=== PATIENT | female | born 1985 ===

== ENCOUNTER 2023-07-27 19:02 | Emergency (ER) | payer OTHER, MEDICAID, SELFPAY ==
[2023-07-27 19:22] VITALS: BP 115/62; PULSE 78; RESP 16; TEMP 36.2; O2SAT 100; BMI 21.9
--- NOTE | 2023-07-27 22:17 | ED.DENTAL ---
HPI - Dental/Oral General Chief complaint: General Medical Stated complaint: dry socket? Time Seen by Provider: 07/27/23 21:28 Source: patient Mode of arrival: ambulatory Limitations: no limitations History of Present Illness HPI Narrative: Patient is status post lower premolar tooth number 21 extraction 3 days ago noticed pain for last 2 days which is sharp unable to eat anything no fever no chills Related Data Home Medications Medication Instructions Recorded Confirmed metformin 500 mg tablet 500 mg PO BID 01/11/23 Previous Rx's Medication Instructions Recorded meloxicam 15 mg tablet 15 mg PO DAILY #14 tabs 01/11/23 Allergies Allergy/AdvReac Type Severity Reaction Status Date / Time No Known Allergies Allergy Unverified 01/11/23 13:08 [No Known Allergies*] Review of Systems Review of Systems: Yes all other systems are reviewed and are negative PMFSH Social History Social History Smoked in Last 30 Days: No Use of substances other than those prescribed or required for medical reasons: No Advance Directives: No Advance Directives Information Provided: No Patient : No Physical Exam Vital Signs: Vital Signs: Last Vital Signs Temp 97.1 F 07/27/23 19:22 Pulse 78 07/27/23 19:22 Resp 16 07/27/23 19:22 BP 115/62 07/27/23 19:22 Pulse Ox 100 07/27/23 19:22 O2 Del Method Room Air 07/27/23 19:22 BMI result Body Mass Index 21.9 HEENT: Teeth image: 1. Post extracted socket no gum swelling no signs of infection tender to touch Medications Administered Discontinued Medications Generic Name Dose Route Start Last Admin Trade Name Rigo PRN Reason Stop Dose Admin Acetaminophen 650 mg 07/27/23 22:08 07/27/23 22:22 Acetaminophen 325 Mg Tablet PO 07/27/23 22:09 650 mg ONCE ONE Administration Medical Decision Making Medical Decision Making MDM Narrative: Patient dry socket post tooth extraction dry socket paste was applied patient felt much better discharge patient home with dry socket paste to be applied every 4 hours as needed patient has a follow-up plan to see dentist next week Discharge Plan Discharge Clinical Impression: Dry tooth socket Patient Disposition: Home, Self-Care Instructions: Dry Socket (ED) Additional Instructions: Care as advised keep her mouth clean do not eat any hard foods Apply dry socket paste every 4 hour as needed for the pain and follow with dentist Prescriptions: No Action metformin 500 mg tablet 500 mg PO BID meloxicam 15 mg tablet 15 mg PO DAILY Qty: 14 0RF Interventions: ED Discharge Assessment Last Done: 07/27/23 22:25 Discharge Date/Time: 07/27/23 22:25
[2023-07-27] MEDS: Acetaminophen 325 MG TABLET 650 MG PO (22:22)
== END 2023-07-27 22:25 | disposition home or self-care (01) ==
PROVIDERS: Emergency Provider Internal Medicine; PCP Internal Medicine
DX: K08.9 Disorder of teeth and supporting structures, unspecified (principal)
CPT/HCPCS: 99283; 99284